=== PATIENT | male | born 1960 | race Caucasian/White ===

== ENCOUNTER 2019-08-28 06:16 | Emergency (ER) | payer BC ==
[2019-08-28] MEDS ORDERED: Acetaminophen TAB* 325 MG PO ONE (08:22)
[2019-08-28 08:43] LABS: ABS Eosinophils 0.1 10^3/ul (0-0.6); ABS Lymphocytes 1.2 10^3/ul (1.0-4.8); ABS Monocytes 0.5 10^3/ul (0-0.8); ABS Neutrophils 2.6 10^3/ul (1.5-7.7); Eosinophil % 1.6 %; Hematocrit 43 % (42-52); Hemoglobin 14.9 g/dL (14.0-18.0); Mean Corpuscular HGB Conc 35 g/dL (31-36); Mean Corpuscular Hemoglobin 31 pg (27-31); Mean Corpuscular Volume 88 fL (80-94); Mean Platelet Volume 8.3 fL (7.4-10.4); Platelet Count 213 10^3/uL (150-450); Red Blood Count 4.84 10^6 /uL (4.18-5.48); Red Cell Distribution Width 14 % (10-15); White Blood Count 4.4 10^3/uL (3.5-10.8)
[2019-08-28 08:48] LABS: INR 0.98 (0.82-1.09)
[2019-08-28 08:58] LABS: Albumin 3.9 g/dL (3.2-5.2); Albumin/Globulin Ratio 1.9 (1-3); BUN/Creatinine Ratio 23.3 (8-20); Calcium 8.8 mg/dL (8.6-10.3); EGFR African American 104.2 (>60); EGFR Non-African American 86.1 (>60); Globulin 2.1 g/dL (2-4); Total Bilirubin 0.5 mg/dL (0.2-1.0)
[2019-08-28] MEDS ORDERED: Iohexol 300* (CONTRAST) 10 ML SDV IV ONE (09:27)
[2019-08-28 09:32] LABS: Potassium 4.1 mmol/L (3.5-5.0)
[2019-08-28] MEDS ORDERED: Lidocaine PATCH 5%* 1 PATCH TRANSDERM ONE (10:49)
--- NOTE | 2019-08-28 10:55 | ED ---
Adult Trauma - HPI Summary HPI Summary: Pt here w/ fall in the shower 4 days ago. Was at his mother's house who has an oddly shaped bathtub and poorly suctioned shower mat - slipped and struck his Rt flank on the sink as he fell. Denies syncope, dizziness, head/neck injury and no LOC).Has had pain in Rt flank since - worse w/ movement, deep breathes, etc. Denies bruising over area, SOB, CP, dyspnea. Somewhat better w/ 400mg ibuprofen. Urinating well w/o dark urine/hematuria. 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 Unsure if he has a bleeding d/o. - History of Current Complaint Chief Complaint: EDBackInjuryPain Stated Complaint: LOWER BACK PAIN Time Seen by Provider: 08/28/19 07:56 Hx Obtained From: Patient Pain Intensity: 8 - Allergy/Home Medications Allergies/Adverse Reactions: Allergies Allergy/AdvReac Type Severity Reaction Status Date / Time No Known Allergies Allergy Verified 08/28/19 06:21 Home Medications: Home Medications Ibuprofen TAB* [Advil TAB*] 400 mg PO Q6H PRN 08/28/19 [History Confirmed ] PMH/Surg Hx/FS Hx/Imm Hx Previously Healthy: Yes Endocrine/Hematology History: Denies: Hx Anticoagulant Therapy, Hx Blood Disorders - h/o hemorrhagic stroke of unknown origin, Hx Diabetes, Hx Thyroid Disease Cardiovascular History: Reports: Hx Cardiac Arrest - according to family report from previous admisstion on 03/11, Other Cardiovascular Problems/Disorders - 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 Denies: Hx Congestive Heart Failure, Hx Hypercholesterolemia, Hx Hypertension , Hx Pacemaker/ICD - REMOVED BEFORE 03/13/15 WAS A TEMPORARY-WIRES ARE REMOVED, Hx Peripheral Vascular Disease Respiratory History: Denies: Hx Asthma History: Denies: Hx Dialysis, Hx Renal Disease Musculoskeletal History: Reports: Hx Orthopedic Injury, Other Musculoskeletal History - Left knee tear and scoped Denies: Hx Arthritis, Hx Rheumatoid Arthritis, Hx Osteoporosis Sensory History: Reports: Hx Contacts or Glasses Denies: Hx Cataracts, Hx Glaucoma, Hx Hearing Aid Opthamlomology History: Reports: Hx Contacts or Glasses Denies: Hx Cataracts, Hx Glaucoma Neurological History: Reports: Hx CVA - hemorrhagic stroke of unknown origin Denies: Hx Headaches, Hx Seizures, Hx Transient Ischemic Attacks (TIA) Psychiatric History: Denies: Hx Anxiety, Hx Depression, Hx Panic Disorder - Cancer History Hx Chemotherapy: No Hx Radiation Therapy: No Hx Palliative Cancer Treatment: No - Surgical History Surgery Procedure, Year, and Place: arthroscopic surgery left knee;. SPORTS HERNIA SURGERY/MESH;. HAD A TEMPERARY PACEMAKER IMPLANTED THAT WAS REMOVED PRIOR TO MRI 03/13/2015. ANGIOGRAM WITH STARCLOSE VASCULAR CLOSURE SYSTEM -{ CONDITIONAL - SPATIAL GRADIENT MAX 720 GUASS/CM} Hx Anesthesia Reactions: No - Immunization History Date of Tetanus Vaccine: unknwon Infectious Disease History: No Infectious Disease History: Denies: Traveled Outside the [place] in Last 30 Days - Social History Lives: With Family Alcohol Use: Weekly Alcohol Amount: 5-6 drinks weekly Hx Substance Use: No Substance Use Type: Reports: None Hx Tobacco Use: No Smoking Status (MU): Never Smoked Tobacco Have You Smoked in the Last Year: No Review of Systems Positive: Fever - said he was warm this morning. Negative: Chills, Fatigue Eyes: Negative ENT: Negative Cardiovascular: Negative Respiratory: Negative Gastrointestinal: Negative Genitourinary: Negative Positive: see HPI Musculoskeletal: Other - as in HPI Skin: Negative Neurological: Negative Psychological: Normal All Other Systems Reviewed And Are Negative: Yes Physical Exam - Summary Physical Exam Summary: Rt lower mid axillary rib TP - no flail chest, no ecchymosis equal chest rise bretahing eaisly - able to pull himself up by arms on bed rails good musculature ab NTTP, soft Triage Information Reviewed: Yes Vital Signs On Initial Exam: Initial Vitals Temp Pulse Resp BP Pulse Ox 98.2 F 76 16 133/90 97 08/28/19 06:17 08/28/19 06:17 08/28/19 06:17 08/28/19 06:17 08/28/19 06:17 Vital Signs Reviewed: Yes Appearance: Positive: Well-Appearing, No Pain Distress - at rest - deliberate movements w/ upper body Skin: Positive: Warm, Skin Color Reflects Adequate Perfusion, Dry - no ecchymosis, no wounds over affected area Head/Face: Positive: Normal Head/Face Inspection - atraumatic Eyes: Positive: Normal, EOMI, SAAD ENT: Positive: Hearing grossly normal, Pharynx normal - mucosa moist Neck: Positive: Supple, Nontender - moving well w/o difficulty Respiratory/Lung Sounds: Positive: Clear to Auscultation, Breath Sounds Present. Negative: Decreased Breath Sounds, Rales, Rhonchi, Subcutaneous Emphysema, Tracheal Deviation, Wheezes, Unable to speak in full sentences, Fatigue Cardiovascular: Positive: Normal, RRR, S1, S2. Negative: Leg Edema Left, Leg Edema Right Abdomen Description: Positive: Nontender, Soft Bowel Sounds: Positive: Present Musculoskeletal: Positive: Strength/ROM Intact, Pain @ - TTP over Rt lower rib along midaxillary and posterior regions - no flail chest and he has equal chest rise Neurological: Positive: Normal, Sensory/Motor Intact, Alert, Oriented to Person Place, Time, CN Intact II-III Psychiatric: Positive: Normal - [place] Coma Scale Best Eye Response: 4 - Spontaneous Best Motor Response: 6 - Obeys Commands Best Verbal Response: 5 - Oriented Coma Scale Total: 15 Procedures - Sedation Patient Received Moderate/Deep Sedation with Procedure: No Diagnostics - Vital Signs Vital Signs Temp Pulse Resp BP Pulse Ox 08/28/19 06:28 72 125/70 97 08/28/19 06:27 67 97 08/28/19 06:17 98.2 F 76 16 133/90 97 - Laboratory Lab Results: Lab Results 08/28/19 08/28/19 08/28/19 Range/Units 08:33 08:33 08:33 WBC 4.4 (3.5-10.8) 10^3/uL RBC 4.84 (4.18-5.48) 10^6 /uL Hgb 14.9 (14.0-18.0) g/dL Hct 43 (42-52) % MCV 88 (80-94) fL MCH 31 (27-31) pg MCHC 35 (31-36) g/dL RDW 14 (10-15) % Plt Count 213 (150-450) 10^3/uL MPV 8.3 (7.4-10.4) fL Neut % (Auto) 59.1 % Lymph % (Auto) 28.0 % [place] % (Auto) 10.6 % Eos % (Auto) 1.6 % Baso % (Auto) 0.7 % Absolute Neuts (auto) 2.6 (1.5-7.7) 10^3/ul Absolute Lymphs (auto) 1.2 (1.0-4.8) 10^3/ul Absolute Monos (auto) 0.5 (0-0.8) 10^3/ul Absolute Eos (auto) 0.1 (0-0.6) 10^3/ul Absolute Basos (auto) 0.0 (0-0.2) 10^3/ul Absolute Nucleated RBC 0.0 10^3/ul Nucleated RBC % 0.0 INR (Anticoag Therapy) 0.98 (0.82-1.09) Sodium 138 (135-145) mmol/L Potassium 4.1 (3.5-5.0) mmol/L Chloride 104 (101-111) mmol/L Carbon Dioxide 30 (22-32) mmol/L Anion Gap 4 (2-11) mmol/L BUN 21 (6-24) mg/dL Creatinine 0.90 (0.67-1.17) mg/dL Est GFR ( Amer) 104.2 (>60) Est GFR (Non-Af Amer) 86.1 (>60) BUN/Creatinine Ratio 23.3 H (8-20) Glucose 103 H (70-100) mg/dL Calcium 8.8 (8.6-10.3) mg/dL Total Bilirubin 0.50 (0.2-1.0) mg/dL AST 12 L (13-39) U/L ALT 16 (7-52) U/L Alkaline Phosphatase 58 (34-104) U/L Total Protein 6.0 L (6.4-8.9) g/dL Albumin 3.9 (3.2-5.2) g/dL Globulin 2.1 (2-4) g/dL Albumin/Globulin Ratio 1.9 (1-3) Result Diagrams: 08/28/19 08:33 08/28/19 08:33 Lab Statement: Any lab studies that have been ordered have been reviewed, and results considered in the medical decision making process. Re-Evaluation - Re-Evaluation First Eval Change: Improved Adult Trauma Course/Dx - Course Course Of Treatment: CT w/o internal organ injury/hematoma however he does have a Rt rib fx - stable. Supportive care discussed and importance of PNA prevention. Pt voices understanding and will f/u w/ PCP - seek medical attention sooner if danger s/sx present. - Diagnoses Provider Diagnoses: Right rib fracture Discharge ED - Sign-Out/Discharge Documenting (check all that apply): Patient Departure - Discharge Plan Condition: Stable Disposition: HOME Prescriptions: Lidocaine PATCH 5%* [Lidoderm 5% Patch*] 1 patch TRANSDERM DAILY PRN #14 patch PRN Reason: Pain - Moderate Patient Education Materials: Rib Fracture (ED) Referrals: Arian Valles MD [Primary Care Provider] - Additional Instructions: Rest, ice and gentle range of motion with your upper extremities to avoid stiffness. Stay well hydrated. You may take 600 mg of ibuprofen every 6 hours with food alternating with extra strength Tylenol for pain relief. Additionally , you have been provided with Lidoderm pain patches. Place this on affected area for 12 hours then remove for 12 hours before placing a patch. It is important that you have good pain control so that you can continue to take deep breaths, cough etc. to prevent pneumonia. Follow up with your PCP in the next couple of weeks - call tomorrow to schedule. If symptoms worsen in the meantime and/or you develop fever, chills, productive cough, seek medical treatment sooner. - Billing Disposition and Condition Condition: STABLE Disposition: Home
[2019-08-28 12:12] VITALS: BP 114/79
[2019-08-28] MEDS ORDERED: Lidocaine Patch REMOVE* 1 NOTE MISC SCH (21:00)
== END 2019-08-28 12:10 | disposition home or self-care (01) ==
LOC: ED 06:16
DX: S22.31XA Fracture of one rib, right side, initial encounter for closed fracture (principal); W18.2XXA Fall in (into) shower or empty bathtub, initial encounter; Y93.E1 Activity, personal bathing and showering; Y92.002 Bathroom of unspecified non-institutional (private) residence as the place of occurrence of the external cause; Z86.73 Personal history of transient ischemic attack (TIA), and cerebral infarction without residual deficits
CPT/HCPCS: 36415; 74177; 80053; 85025; 85610; 99282; A9270-GY; Q9967